=== PATIENT | male | born 1945 | race Caucasian/White ===

== ENCOUNTER → 2017-02-10 | Outpatient (CLI) | payer MEDICARE, OTHER ==
[~2017-02-10] MED LIST: ASP81TEC PO; CALC-758 PO; CALCIUM; GLPZ10TCR PO; LAVAZA PO; LISI10TA PO; METO50TA7 PO; MULT-963 PO; OMG1KC PO; PRAVASTATIN; PRV20T PO; SITA1TAB6 PO; [UNRECOGNIZED DRUG - OTHER]; [UNRECOGNIZED DRUG - OTHER]; [UNRECOGNIZED DRUG - OTHER] PO
--- NOTE | 2017-02-10 10:44 | Diagnostic Imaging Report ---
Abdominal aortic ultrasound. INDICATION : Aneurysm. There are no prior studies available for comparison. Spectral and color flow imaging of the abdominal aorta was performed. The visualized abdominal aorta is not abnormally dilated. The proximal aorta was obscured by bowel gas; but the midportion measures only 1.4 x 1.6 cm, and the distal abdominal aorta measures 1.8 x 1.6 cm. There is no periaortic fluid collection to suggest an acute abnormality. 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 The right common iliac artery measures 1.3 x 1.1 cm, while the left measures 1.2 x 1.1 cm (normal 1.0 x 1.0 cm or less.) IMPRESSION: 1. The aorta, where visualized, shows no evidence for an aneurysm. 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 2. There is no acute abnormality identified. Dictated by: Dictated on workstation # [id number]
== END ==
LOC: RAD 07:51
PROVIDERS: ATTEND Nurse Practitioner Family
DX: I71.4 Abdominal aortic aneurysm, without rupture (principal)
CPT/HCPCS: 76775

== ENCOUNTER → 2021-10-28 | Outpatient (CLI) | payer MEDICARE, OTHER ==
[2021-10-28 10:37] VITALS: BP 138/64
== END ==
LOC: CARD 09:00
PROVIDERS: ATTEND Internal Medicine Cardiovascular Disease
DX: I35.1 Nonrheumatic aortic (valve) insufficiency (principal); I51.7 Cardiomegaly; I45.19 Other right bundle-branch block
CPT/HCPCS: 93306; C8930

== ENCOUNTER → 2022-12-23 | Outpatient (CLI) | payer MEDICARE, OTHER ==
--- NOTE | 2022-12-23 18:24 | Diagnostic Imaging Report ---
INDICATION: Lower back pain. COMPARISON: None available. TECHNIQUE: Three radiographs of the lumbar spine dated 12/23/2022. FINDINGS: Five lumbar-type vertebral bodies are present. Alignment of the lumbar spine is well maintained. Besides mild scattered endplate degenerative changes, vertebral body heights are well maintained. Minimal disc space height loss at L3/L4 and L4/L5. No severe disc space height loss. Multilevel mild anterior osteophyte formation. Scattered facet joint degenerative changes, greatest within the lower lumbar spine. The sacroiliac joints are intact. No acute fracture. Advanced background vascular calcifications are present. IMPRESSION: No acute osseous abnormality with mild degenerative changes for age. Advanced background vascular calcifications. Dictated by: Dictated on workstation # [id number]
== END ==
LOC: RAD 09:54
PROVIDERS: ATTEND Family Medicine
DX: M47.816 Spondylosis without myelopathy or radiculopathy, lumbar region (principal)
CPT/HCPCS: 72100